=== PATIENT | female | born 1940 | race Caucasian/White ===

== ENCOUNTER → 2017-10-10 13:42 | Outpatient (CLI) | payer MEDICARE, SELFPAY ==
[2017-10-10 14:21] LABS: Alanine Aminotransferase 28 IU/L (9-52); Albumin 4.2 g/dL (3.5-5.0); Albumin Globulin Ratio 1.4 (1.0-2.8); Alkaline Phosphatase 85 U/L (38-126); Aspartate Aminotransferase 21 IU/L (14-36); BUN Creatinine Ratio 15.6 (6-22); Bilirubin Total 0.5 mg/dL (0.2-1.3); Blood Urea Nitrogen 14 mg/dL (7-17); Calcium 9.4 mg/dL (8.4-10.2); Carbon Dioxide 26 mmol/L (22-32); Chloride 105 mmol/L (98-107); Estimated Glomerular Filt Rate > 60.0 mL/min (>60); Glucose 115 mg/dL (80-110); HEMOLYSIS < 15 (0-50); Potassium 4.1 mmol/L (3.4-5.1); Sodium 141 mmol/L (137-145); Total Protein 7.2 g/dL (6.3-8.2)
[2017-10-12 15:35] LABS: Cancer Antigen 27.29 13 U/mL (< 38)
== END ==
PROVIDERS: Internal Medicine Hematology & Oncology; Family Provider Nurse Practitioner Family; PCP Family Medicine; Visit Provider Nurse Practitioner Gerontology
DX: C50.919 Malignant neoplasm of unspecified site of unspecified female breast (principal)
CPT/HCPCS: 36415; 80053; 86300

== ENCOUNTER → 2017-11-25 10:57 | Outpatient (CLI) | payer MEDICARE, SELFPAY ==
--- NOTE | 2017-11-25 | DI.MG.S_ITS ---
BILATERAL DIGITAL SCREENING MAMMOGRAM 3D/2D WITH CAD: 11/25/2017 CLINICAL: Routine screening. Personal history of right breast cancer. Comparison is made to exams dated: 11/23/2016 mammogram, 05/23/2016 mammogram, and 09/02/2015 mammogram - [facility]. There are scattered fibroglandular elements in both breasts. Current study was also evaluated with a Computer Aided Detection (CAD) system. There are benign vascular calcifications in both breasts. There also are post operative findings in the right breast. No significant masses, calcifications, or other findings are seen in either breast. There has been no significant interval change. IMPRESSION: BENIGN There is no mammographic evidence of malignancy. A 1 year screening mammogram is recommended. This exam was interpreted at Station ID: [id number]. NOTE: For mammograms, a report in lay terms will be sent to the patient. Approximately 15% of breast malignancies will not be visualized mammographically. In the management of a palpable breast mass, a negative mammogram must not discourage biopsy of a clinically suspicious lesion. Electronically Signed By: Phillip bonilla/chel:11/25/2017 16:52:07 copy to: Carline Neal copy to: Sergey Jimenez letter sent: Normal Exam ACR BI-RADS Category 2: Benign Finding(s) 3342F
== END ==
PROVIDERS: Family Provider Nurse Practitioner Family; PCP Family Medicine; Referring Provider Nurse Practitioner Gerontology; Visit Provider Family Medicine
DX: Z12.31 Encounter for screening mammogram for malignant neoplasm of breast (principal); Z85.3 Personal history of malignant neoplasm of breast
CPT/HCPCS: 77063; 77067

== ENCOUNTER → 2018-02-10 13:49 | Outpatient (CLI) | payer MEDICARE, SELFPAY ==
[2018-02-10 14:27] LABS: Add Manual Diff / Slide Review NO; Basophils Percent Auto 0.6 % (0-2); Eosinophils Percent Auto 2.4 % (2-4); Hematocrit 40.6 % (36-46); Hemoglobin 13.7 g/dL (12.0-16.0); Lymphocytes Percent Auto 34.3 % (25-40); Mean Corpuscular HGB Conc 33.8 % (30-36); Mean Corpuscular Hemoglobin 32.5 PG (26-34); Mean Corpuscular Volume 96.2 fL (80-100); Monocytes Percent Auto 9.8 % (3-14); Neutrophils Absolute Auto 3200 /uL (3000-5900); Neutrophils Percent Auto 52.9 % (50-75); Platelet Count 286 X10^3/uL (150-400); Red Blood Cell Count 4.22 X10^6/uL (4.0-5.2); Red Cell Distribution Width 13.1 % (11.6-14.8)
[2018-02-10 15:44] LABS: Alanine Aminotransferase 27 IU/L (9-52); Albumin 4.3 g/dL (3.5-5.0); Albumin Globulin Ratio 1.4 (1.0-2.8); Alkaline Phosphatase 88 U/L (38-126); Aspartate Aminotransferase 22 IU/L (14-36); Bilirubin Total 0.3 mg/dL (0.2-1.3); Blood Urea Nitrogen 16 mg/dL (7-17); Calcium 9.2 mg/dL (8.4-10.2); Carbon Dioxide 27 mmol/L (22-32); Chloride 103 mmol/L (98-107); Estimated Glomerular Filt Rate 53.8 mL/min (>60); Globulin 3.1 g/dL (1.7-4.1); Glucose 97 mg/dL (80-110); HEMOLYSIS < 15 (0-50); Sodium 140 mmol/L (137-145); Total Protein 7.4 g/dL (6.3-8.2)
[2018-02-12 15:42] LABS: Cancer Antigen 27.29 15 U/mL (< 38)
--- NOTE | 2018-07-30 12:22 | PC.NURSE ---
Pt stopped by clinic yesterday requesting Letrozole refill. According to pt I don't have a dose for tomorrow. Pt had scheduled appt with Dr. Trotter 08/18/18. RX called in for 30 day supply. Instructed pt to discuss medication schedule and refill with Dr. Trotter at next visit, pt verbalizes understanding and agrees to comply.
== END ==
PROVIDERS: Internal Medicine Hematology & Oncology; Family Provider Nurse Practitioner Family; PCP Family Medicine; Visit Provider Nurse Practitioner Gerontology
DX: C50.911 Malignant neoplasm of unspecified site of right female breast (principal); Z17.0 Estrogen receptor positive status [ER+]; Z79.811 Long term (current) use of aromatase inhibitors
CPT/HCPCS: 36415; 80053; 85025; 86300

== ENCOUNTER 2018-02-17 14:30 | Oncology outpatient (ONC) | payer MEDICARE, SELFPAY ==
--- NOTE | 2017-10-17 17:45 | P.PNONC_ITS ---
Assessment and Plan (1) Breast cancer Current visit: No Status: Acute This is a pleasant 77-year-old lady whom I am seeing for the 1st time today transferring care from Dr. Escalona. She has a history of invasive ductal carcinoma of the right breast in September 2015. S/p lumpectomy and sentinel node examination on October 04, 2015, Surgical pathology showing a 2.1 cm tumor, 2/5 lymph nodes positive, strongly estrogen positive, her-2 negative, T2, N1a Status post adjuvant chemotherapy with 4 cycles of Adriamycin and Cytoxan every 3 weeks, followed by adjuvant radiation therapy. As far as I can review the patient was not exposed to Taxol. Initiation of adjuvant hormonal therapy with Femara since March 2016. Baseline bone density of March 2016, DEXA scan, normal Bilateral screening mammogram of November 2016 negative. She has been tolerating letrozole without major issues however upon questioning she does have some discomfort and stiffness at the base of her thumbs bilaterally which are likely side effects from letrozole. She prefers to continue letrozole for now but I instructed her that if this complaints get worse there would be an option for her to we switched to tamoxifen which does not interfere with joint issues. New 9 her lab studies of October 10, 2017 including CMP and CA 27-29 were all within normal range. Continue letrozole. Next mammogram should be done in November 2017. Next DEXA scan in April 2018. If any osteopenia consider starting her on Prolia injection. Return for follow-up in 4-6 months 10/17/17 17:46 - Time Spent with Patient Approximately 30 min were spent in counseling and coordination of care PN -Subjective Interval history: This is a pleasant 77-year-old lady whom I am seeing for the 1st time today transferring care from Dr. Escalona. She has a history of invasive ductal carcinoma of the right breast in September 2015. S/p lumpectomy and sentinel node examination on October 04, 2015, Surgical pathology showing a 2.1 cm tumor, 2/5 lymph nodes positive, strongly estrogen positive, her-2 negative, T2, N1a Status post adjuvant chemotherapy with 4 cycles of Adriamycin and Cytoxan every 3 weeks, followed by adjuvant radiation therapy. As far as I can review the patient was not exposed to Taxol. Initiation of adjuvant hormonal therapy with Femara since March 2016. Baseline bone density of March 2016, DEXA scan, normal Bilateral screening mammogram of November 2016 negative. She has been tolerating letrozole without major issues however upon questioning she does have some discomfort and stiffness at the base of her thumbs bilaterally which are likely side effects from letrozole. - Additional ROS All systems PM: reviewed and no additional remarkable complaints except as stated Additional ROS: Stiffness and discomfort at the base of the thumb bilaterally no other significant bone pain or joint issues Results - Imaging Additional studies: Procedures Cholecystectomy (05/25/10) Gastropexy (05/25/10) Intraoperative cholangiogram (05/25/10) Other and open repair of diaphragmatic hernia, abdominal approach (05/25/10) Other endoscopy of small intestine (05/05/10) Home Medications and Allergies Home Medications Medication Instructions Recorded Confirmed Type [OMEGA 3] 1,000 mg PO Q DAY #0 04/22/10 History letrozole [Femara] 2.5 mg PO QDAY #90 tab 08/06/17 Rx cholecalciferol (vitamin D3) 1,000 unit PO DAILY 10/17/17 10/17/17 History [Vitamin D3] cyanocobalamin (vitamin B-12) 1,000 mcg PO DAILY 10/17/17 10/17/17 History [Vitamin B-12] latanoprost 10/17/17 History red yeast rice 600 mg PO DAILY 10/17/17 10/17/17 History Allergies Allergy/AdvReac Type Severity Reaction Status Date / Time oxycodone [From PERCOCET] AdvReac Intermediate VOMITING Unverified 07/31/17 12: 25 INGREDIENT: NKDA - NO KNOWN Allergy Unknown Uncoded 07/31/17 12:25 DRUG ALLERGIES
--- NOTE | 2018-02-17 12:28 | P.PNONC_ITS ---
PN -Subjective Interval history: This is a pleasant 77-year-old lady whom presents to oncology clinic 02/17/2018 for routine surveillance visit. She has a history of invasive ductal carcinoma of the right breast diagnosed in September 2015. S/p lumpectomy and sentinel node examination on October 04, 2015, Surgical pathology showing a 2.1 cm tumor, 2/5 lymph nodes positive, strongly estrogen positive, her-2 negative, T2, N1a Status post adjuvant chemotherapy with 4 cycles of Adriamycin and Cytoxan every 3 weeks, followed by adjuvant radiation therapy. As far as I can review the patient was not exposed to Taxol. Initiation of adjuvant hormonal therapy with Femara since March 2016. Baseline bone density of March 2016, DEXA scan, normal Bilateral screening mammogram of November 2016 negative. Most recent screening mammogram, bilateral, was November of 2017, which was without evidence of malignancy and recommendation to repeat in 1 year. She has been tolerating letrozole without any reportable adverse effects. She denies hot flashes. She denies bony pain or muscle pain. No new lumps or bumps. Activity tolerance is unchanged. Appetite is good, weight is stable. No issue with bladder or bowels. Past Medical History 2. Glucose intolerance 3. Cholecystectomy hiatal hernia repair approximately 5 years ago 4. Tubal ligation 5. AB 0 6. She does not have heart or lung disease or other major illnesses. Past Surgical History lumpectomy and node dissection on 10/04/15 Cholecystectomy hiatal hernia repair approximately 5 years ago Tubal ligation Home Medications and Allergies Home Medications Medication Instructions Recorded Confirmed Type [OMEGA 3] 1,000 mg PO Q DAY #0 04/22/10 History letrozole [Femara] 2.5 mg PO QDAY #90 tab 08/06/17 Rx cholecalciferol (vitamin D3) 1,000 unit PO DAILY 10/17/17 10/17/17 History [Vitamin D3] cyanocobalamin (vitamin B-12) 1,000 mcg PO DAILY 10/17/17 10/17/17 History [Vitamin B-12] latanoprost 10/17/17 History red yeast rice 600 mg PO DAILY 10/17/17 10/17/17 History Allergies Allergy/AdvReac Type Severity Reaction Status Date / Time oxycodone [From PERCOCET] AdvReac Intermediate VOMITING Unverified 07/31/17 12: 25 INGREDIENT: NKDA - NO KNOWN Allergy Unknown Uncoded 07/31/17 12:25 DRUG ALLERGIES Exam - Constitutional positive no acute distress - Routine HEENT Exam Eye: Present: conjunctivae pink. Absent: conjunctival icterus, scleral injection ENT: Present: mucous membranes moist, oropharynx clear - Routine Neck Exam Present: supple. Absent: lymphadenopathy - Routine Chest/Breast/Axilla Exam Chest wall exam standard: Absent: tenderness, mass Breast: Absent: tenderness, mass, erythema, rashes Axillae: Absent: lymphadenopathy, mass, tenderness - Routine Respiratory Exam Present: Clear to auscultation bilaterally. Absent: rales, rhonchi, wheezes - Routine Cardiovascular Exam Present: RRR, S1, S2. Absent: murmur, gallop, rubs, JVD - Routine Abdominal Exam Present: soft, normoactive bowel sounds. Absent: tenderness, distended, guarding, organomegaly, mass - Routine Extremities Exam Absent: edema, calf tenderness - Routine Skin Exam Present: intact, normal turgor. Absent: petechiae, rash - Routine Neurological Exam Present: alert, oriented X3 - Routine Psychiatric Exam Present: normal affect Assessment and Plan (1) Breast cancer Current visit: No Status: Acute 77-year-old female with a history of invasive ductal carcinoma in the right breast. Reassuringly on exam today she presents without clinical signs or symptoms of disease progression. She is tolerating letrozole without significant adverse effects. Most recent mammogram November 25, 2017 was without evidence of malignancy. Recommendation is to repeat in 1 year. CBC, CMP unremarkable today. Additionally, CA 27-29 remains low at 15. Return to clinic in 6 months time for provider visit, CBC, CMP, CA 27-29. PCP is following blood sugars. - Time Spent with Patient 30 mins
[2018-02-17 14:56] VITALS: BP 127/84; PULSE 75; RESP 18; TEMP 36.4; O2SAT 98
[2018-08-13 10:00] LABS: Add Manual Diff / Slide Review NO; Basophils Absolute Auto 0 /uL (0-100); Basophils Percent Auto 0.7 % (0-2); Eosinophils Absolute Auto 200 /uL (0-450); Eosinophils Percent Auto 3.7 % (2-4); Hemoglobin 14.2 g/dL (12.0-16.0); Lymphocytes Absolute Auto 1800 /uL (1100-4500); Lymphocytes Percent Auto 30.7 % (25-40); Mean Corpuscular HGB Conc 34.7 % (30-36); Mean Corpuscular Hemoglobin 32.7 PG (26-34); Monocytes Absolute Auto 500 /uL (0-900); Monocytes Percent Auto 8.6 % (3-14); Neutrophils Absolute Auto 3200 /uL (1500-7000); Neutrophils Percent Auto 56.3 % (50-75); Platelet Count 285 X10^3/uL (150-400); Red Blood Cell Count 4.35 X10^6/uL (4.0-5.2); Red Cell Distribution Width 13.2 % (11.6-14.8); White Blood Cell Count 5.8 X10^3/uL (4.5-11.0)
[2018-08-13 10:12] LABS: Alanine Aminotransferase 21 IU/L (9-52); Albumin 4.5 g/dL (3.5-5.0); Albumin Globulin Ratio 1.5 (1.0-2.8); Alkaline Phosphatase 94 U/L (38-126); Aspartate Aminotransferase 23 IU/L (14-36); BUN Creatinine Ratio 14.5 (6-22); Bilirubin Total 0.5 mg/dL (0.2-1.3); Blood Urea Nitrogen 16 mg/dL (7-17); Calcium 9.6 mg/dL (8.4-10.2); Carbon Dioxide 25 mmol/L (22-32); Chloride 103 mmol/L (98-107); Globulin 3.1 g/dL (1.7-4.1); Glucose 162 mg/dL (80-110); HEMOLYSIS < 15 (0-50); Potassium 3.9 mmol/L (3.4-5.1); Sodium 139 mmol/L (137-145); Total Protein 7.6 g/dL (6.3-8.2)
[2018-08-15 15:44] LABS: Cancer Antigen 27.29 14 U/mL (< 38)
== END 2018-02-27 13:35 ==
PROVIDERS: Family Provider Nurse Practitioner Family; PCP Family Medicine; Visit Provider Internal Medicine Hematology & Oncology
DX: C50.911 Malignant neoplasm of unspecified site of right female breast (principal); Z17.0 Estrogen receptor positive status [ER+]; Z79.811 Long term (current) use of aromatase inhibitors
CPT/HCPCS: 36415; 80053; 85025; 86300; 99214

== ENCOUNTER → 2018-11-27 12:39 | Outpatient (CLI) | payer MEDICARE, SELFPAY ==
--- NOTE | 2018-11-27 12:41 | DI.MG.S_ITS ---
BILATERAL DIGITAL DIAGNOSTIC MAMMOGRAM 3D/2D POST LUMPECTOMY: 11/27/2018 CLINICAL: Malignant neoplasm of breast. History of right breast cancer status post right lumpectomy. Comparison is made to exams dated: 11/25/2017 mammogram, 11/23/2016 mammogram, 08/18/2015 mammogram, 09/02/2015 ultrasound biopsy, and 04/21/2013 mammogram - [facility]. There are scattered fibroglandular elements in both breasts. There are postsurgical changes of the superior right breast with surgical clips noted. There is an overlying linear scar marker at the surgical site. There are multiple circular mole markers overlying the left breast. No suspicious masses, calcifications, or other findings are seen in either breast. IMPRESSION: There is no mammographic evidence of malignancy in either breast. A 1 year screening mammogram is recommended. The patient is advised to monitor her breasts and to return sooner for reevaluation if she feels anything grow or change in her breasts. Clinical follow-up is also recommended for this patient with history of right breast cancer. This exam was interpreted at Station ID: [id number]. NOTE: For mammograms, a report in lay terms will be sent to the patient. Approximately 15% of breast malignancies will not be visualized mammographically. In the management of a palpable breast mass, a negative mammogram must not discourage biopsy of a clinically suspicious lesion. Electronically Signed By: Phillip Ann M.D. ecl/:11/27/2018 13:36:35 copy to: Carline Neal letter sent: Clinical Evaluation ACR BI-RADS Category 2: Benign Finding(s) 3342F
== END ==
PROVIDERS: PCP Family Medicine; Referring Provider Nurse Practitioner Family
DX: C50.919 Malignant neoplasm of unspecified site of unspecified female breast (principal); R92.8 Other abnormal and inconclusive findings on diagnostic imaging of breast; Z85.3 Personal history of malignant neoplasm of breast
CPT/HCPCS: 77066; G0279

== ENCOUNTER → 2019-07-06 18:16 | Outpatient (CLI) | payer MEDICARE, SELFPAY ==
[2019-07-06 19:07] LABS: Influenza A - CEPHEID Flu A NEGATIVE (NEGATIVE); Influenza B - CEPHEID Flu B NEGATIVE (NEGATIVE)
[2019-07-14 01:36] LABS: COVID19 Sendout Not Detected (Not Detected)
== END ==
PROVIDERS: PCP Family Medicine; Visit Provider Physician Assistant
DX: R68.89 Other general symptoms and signs (principal)
CPT/HCPCS: 87502; 87635

== ENCOUNTER 2019-07-19 21:58 | Emergency (ER) | payer MEDICARE, SELFPAY ==
[2019-07-19 22:12] VITALS: BP 138/96; PULSE 97; RESP 18; TEMP 36.1; O2SAT 97; BMI 30.9
[2019-07-19 23:35] LABS: Bacteria Urine Few (2-10); RBC Urine >100/HPF (0-5/HPF); WBC Urine 5-10/HPF (0-5/HPF)
[2019-07-19 23:36] LABS: Calcium Oxalate Crystals Urine Few; Culture Indicated Urine Specimen Cultured
--- NOTE | 2019-07-19 23:41 | ED.FEMALEGU ---
HPI - Female Genitourinary General Chief complaint: Urogenital-Female Stated complaint: thinks bladder infection, little bit of a cough Time Seen by Provider: 07/19/19 22:20 Source: patient Mode of arrival: Ambulatory Limitations: no limitations History of Present Illness HPI Narrative: 79-year-old female nonsmoker with noncontributory medical history presents by herself with a chief complaint of burning, frequency and urgency with urination over the course of the day. She denies any fever or chills nor back pain. She does admit to blood in her urine. She denies chest pain or shortness of breath. She denies nausea, vomiting or diarrhea. She denies any back pain. Patient does state that she was recently seen and evaluated as an outpatient and was found to have a bronchitis and was placed on antibiotics. Since then she admits to engaging in sexual contact with a partner and using a battery powered toy. She denies vaginal bleeding or discharge. MD Complaint: dysuria and UTI Onset (ago): day(s) Female Urogenital Radiation: Suprapubic Severity: mild Quality: Burning Duration: constant Exacerbating factors: urination Urinary symptoms: Dysuria, Frequency, Hematuria and Urgency Related Data Home Medications Medication Instructions Recorded Confirmed [OMEGA 3] 1,000 mg PO Q DAY #0 04/22/10 07/06/19 cholecalciferol (vitamin D3) 1,000 unit PO DAILY 10/17/17 07/06/19 [Vitamin D3] cyanocobalamin (vitamin B-12) 1,000 mcg PO DAILY 10/17/17 07/06/19 [Vitamin B-12] latanoprost 10/17/17 07/06/19 red yeast rice 600 mg PO DAILY 10/17/17 07/06/19 Previous Rx's Medication Instructions Recorded letrozole [Femara] 2.5 mg PO QDAY #90 tab 08/20/18 albuterol sulfate 90 mcg/actuation 2 puff INHALATION Q4-6H PRN #8.5 07/06/19 aerosol inhaler gram benzonatate 100 mg capsule 100 mg PO BID PRN #30 cap 07/06/19 fluconazole [Diflucan] 150 mg PO Q3D #2 tab 07/20/19 Allergies Allergy/AdvReac Type Severity Reaction Status Date / Time oxycodone [From PERCOCET] AdvReac Intermediate VOMITING Unverified 07/06/19 18:34 INGREDIENT: NKDA - NO KNOWN Allergy Unknown Uncoded 07/31/17 12:25 DRUG ALLERGIES Review of Systems Constitutional Constitutional: Denies chills, Denies fatigue, Denies fever(s), Denies frequent falls, Denies lethargy and Denies weakness Eyes Eyes: Denies change in vision, Denies eye discharge, Denies irritation and Denies loss of vision ENT Ears, Nose, Mouth, and Throat: Denies change in voice, Denies dizziness, Denies neck pain, Denies sore throat and Denies throat swelling Cardiovascular Cardiovascular: Denies chest pain, Denies irregular heart rhythm, Denies lightheadedness, Denies palpitations, Denies dyspnea, Denies dyspnea on exertion and Denies orthopnea Respiratory Respiratory: Denies cough, Denies dyspnea, Denies dyspnea on exertion and Denies wheezing Gastrointestinal Gastrointestinal: Denies abdominal pain, Denies change in bowel habits, Denies diarrhea, Denies nausea and Denies vomiting Genitourinary Genitourinary: Reports hematuria, Denies flank pain, Denies urinary incontinence and Denies urinary urgency Musculoskeletal Musculoskeletal: Denies back pain, Denies muscle weakness, Denies neck pain, Denies numbness and Denies tingling Integumentary/Breasts Skin/Breast: Denies pruritus, Denies erythema, Denies rash and Denies wounds Neurologic Neurologic: Denies behavioral changes, Denies confusion, Denies dizziness, Denies frequent falls, Denies loss of vision, Denies numbness, Denies tingling and Denies weakness Psychiatric Psychiatric: Denies anxiety, Denies behavioral changes, Denies confusion, Denies depression, Denies homicidal ideation and Denies suicidal ideation Endocrine Endocrine: Denies fatigue, Denies flushing and Denies palpitations Hematologic/Lymphatic Hematologic/Lymphatic: Denies easy bruising Allergic/Immunologic Allergic/Immunologic: Denies urticaria, Denies throat swelling and Denies wheezing Patient History Medical History Pneumonia (Acute) alcohol intake frequency: 0-2 drinks per day Substance Use Type: does not use Exam Narrative Exam Narrative: GENERAL: [79] year old patient appears stated age. Well-nourished, well-developed patient, in mild distress. HEAD: Atraumatic. Normocephalic. EYES: Pupils equal round and reactive. Extraocular motions intact. No scleral icterus. No injection or drainage. ENT: Nose without bleeding, purulent drainage. Throat without erythema, tonsillar hypertrophy or exudate. Airway patent. NECK: Trachea midline. Non tender CARDIOVASCULAR: Regular rate and rhythm without murmurs, gallops, or rubs. RESPIRATORY: Clear to auscultation. Breath sounds equal bilaterally. No wheezes, rales, or rhonchi. GASTROINTESTINAL: Abdomen soft, non-tender, nondistended. PELVIC: cystocele, erythematous vulva, minimal external white discharge consistent with possible becky EXTREMITIES: No edema or joint tenderness. BACK: Nontender without deformity or crepitance. No flank tenderness. NEURO: AOx3. SKIN: No rash or erythema of visible areas Initial Vital Signs Initial Vital Signs: Vital Signs Temperature 97.0 F L 07/19/19 22:12 Pulse Rate 97 H 07/19/19 22:12 Respiratory Rate 18 07/19/19 22:12 Blood Pressure 138/96 H 07/19/19 22:12 Pulse Oximetry 97 07/19/19 22:12 Course Orders Ordered: ED Orders 07/19/19 23:14 Urine Culture Stat Urine Microscopic Stat Discontinued Medications Fluconazole (Diflucan) 150 mg PO NOW ONE Stop: 07/20/19 00:40 Last Admin: 07/20/19 01:16 Dose: Not Given Documented by: ERICA Phenazopyridine HCl (Pyridium 100mg Prepack) 1 bottle MISC SEEINSTR ONE Stop: 07/20/19 01:00 Last Admin: 07/20/19 01:16 Dose: 1 bottle Documented by: ERICA Vital Signs Vital signs: Vital Signs - 8 hr 07/20/19 01:24 Temperature 98.6 F Pulse Rate 107 H Respiratory Rate 20 Blood Pressure 152/88 H Pulse Oximetry 97 MDM - Female Genitourinary Lab Data Labs: Lab Results 07/19/19 Range/Units 23:14 Urine RBC >100/hpf H (0-5/HPF) Urine WBC 5-10/hpf H (0-5/HPF) Calcium Oxalate Crystal Few H Urine Bacteria Few (2-10) H (None) Ur Culture Indicated? Specimen cultured Micro UA Comment * Urine Dip Bedside Urine Glucose 100 mg/dl Bedside Urine Bilirubin ++ 2 Bedside Urine Ketone ++ 40 Urine Specific [place] 1.020 Bedside Urine Protein +++ 300 Bedside Urine Urobilinogen 2+ 4mg Bedside Urine Nitrite + Positive Bedside Urine Leukocytes +++ 500 Esterase Discharge Plan Departure Patient Disposition: Home Clinical Impression: Dysuria, Candidiasis of vulva Hematuria Qualifiers: Hematuria type: unspecified type Qualified Code(s): R31.9 - Hematuria, unspecified Bladder cystocele Qualifiers: Cystocele location: midline Qualified Code(s): N81.11 - Cystocele, midline Discharge Date/Time: 07/20/19 01:26 Instructions: Vaginal Yeast Infection Activity Restrictions/Additional Instructions: *You have been diagnosed with [ vulva candidiasis, cystocele ] *What to do: *Take medications as directed *Follow up with your primary care provider in 2-3 days, call for an appointment. Let them know you were seen in the Emergency Department and that we ask that you be seen in follow up *Return to ER if you should have any new, worsening or concerning symptoms Prescriptions: New fluconazole [Diflucan] 150 mg tablet 150 mg PO Q3D Qty: 2 RF: 0 No Action benzonatate [Tessalon Perles] 100 mg capsule 100 mg PO BID PRN (Reason: cough) Qty: 30 RF: 0 albuterol sulfate 90 mcg/actuation HFA aerosol inhaler 2 puff INHALATION Q4-6H PRN (Reason: bronchospasm) Qty: 8.5 RF: 0 [OMEGA 3] 1,000 mg PO Q DAY Qty: 0 RF: 0 cholecalciferol (vitamin D3) [Vitamin D3] 1,000 unit Tablet 1,000 unit PO DAILY RF: 0 latanoprost 0.005 % Drops RF: 0 cyanocobalamin (vitamin B-12) [Vitamin B-12] 1,000 mcg Tablet 1,000 mcg PO DAILY RF: 0 red yeast rice 600 mg Capsule 600 mg PO DAILY RF: 0 letrozole [Femara] 2.5 MG tablet 2.5 mg PO QDAY Qty: 90 RF: 3 Referrals: Carolina Boss MD [Physician] - Vernon Moss MD [Primary Care Provider] -
[2019-07-20] MEDS: PHENAZOPYRIDINE 100 MG PREPACK 1 BOTTLE MISC (01:16)
[2019-07-20 01:24] VITALS: BP 152/88; PULSE 107; RESP 20; TEMP 37; O2SAT 97
== END 2019-07-20 01:26 | disposition home or self-care (01) ==
PROVIDERS: Emergency Provider Emergency Medicine; PCP Family Medicine
DX: B37.3 Candidiasis of vulva and vagina (principal); R31.9 Hematuria, unspecified; N81.11 Cystocele, midline; R30.0 Dysuria
CPT/HCPCS: 81003; 81015; 87077; 87086; 87186; 99281; 99283

== ENCOUNTER → 2019-08-28 09:26 | Outpatient (CLI) | payer MEDICARE, SELFPAY ==
[2019-08-28 10:04] LABS: Appearance Urine UA CLOUDY; Bilirubin Urine UA NEGATIVE (NEGATIVE); Color Urine UA YELLOW; Glucose Urine UA NEGATIVE (Negative); Ketones Urine UA NEGATIVE (NEGATIVE); Leukocyte Esterase Urine UA 3+ (NEGATIVE); Nitrite Urine UA NEGATIVE (Negative); Occult Blood Urine UA 1+ (Negative); Protein Urine UA NEGATIVE (Negative); Urobilinogen Urine UA 0.2 E.U./dL (0.2)
[2019-08-28 10:28] LABS: Bacteria Urine Moderate (10-30); RBC Urine 1-5/HPF (0-5/HPF); WBC Urine 30-100/HPF (0-5/HPF)
[2019-08-28 10:29] LABS: Culture Indicated Urine Specimen Cultured
== END ==
PROVIDERS: PCP Internal Medicine; Referring Provider Internal Medicine; Visit Provider Internal Medicine
DX: R30.0 Dysuria (principal)
CPT/HCPCS: 81001; 87077; 87086; 87186

== ENCOUNTER → 2019-10-09 13:08 | Outpatient (CLI) | payer MEDICARE, SELFPAY ==
[2019-10-09 14:00] LABS: Add Manual Diff / Slide Review NO; Basophils Absolute Auto 100 /uL (0-100); Basophils Percent Auto 0.8 % (0-2); Eosinophils Absolute Auto 200 /uL (0-450); Eosinophils Percent Auto 2.6 % (2-4); Hematocrit 40.4 % (36-46); Lymphocytes Absolute Auto 2500 /uL (1100-4500); Lymphocytes Percent Auto 34.2 % (25-40); Mean Corpuscular HGB Conc 34.7 % (30-36); Mean Corpuscular Hemoglobin 33.1 PG (26-34); Mean Corpuscular Volume 95.3 fL (80-100); Monocytes Absolute Auto 800 /uL (0-900); Monocytes Percent Auto 10.7 % (3-14); Neutrophils Absolute Auto 3700 /uL (1500-7000); Neutrophils Percent Auto 51.7 % (50-75); Platelet Count 310 X10^3/uL (150-400); Red Blood Cell Count 4.24 X10^6/uL (4.0-5.2); Red Cell Distribution Width 13.6 % (11.6-14.8); White Blood Cell Count 7.2 X10^3/uL (4.5-11.0)
[2019-10-09 14:25] LABS: Alanine Aminotransferase 25 IU/L (<35); Albumin 4.5 g/dL (3.5-5.0); Albumin Globulin Ratio 1.4 (1.0-2.8); Alkaline Phosphatase 84 U/L (38-126); Aspartate Aminotransferase 27 IU/L (14-36); BUN Creatinine Ratio 15.2 (6-22); Bilirubin Total 0.6 mg/dL (0.2-1.3); Blood Urea Nitrogen 15 mg/dL (7-17); Calcium 9.7 mg/dL (8.4-10.2); Carbon Dioxide 25 mmol/L (22-32); Chloride 104 mmol/L (98-107); Estimated Glomerular Filt Rate 54.1 mL/min (>60); Globulin 3.3 g/dL (1.7-4.1); Glucose 113 mg/dL (80-110); HEMOLYSIS 34 (0-50); Potassium 4.3 mmol/L (3.4-5.1); Sodium 139 mmol/L (137-145); Total Protein 7.8 g/dL (6.3-8.2)
== END ==
PROVIDERS: PCP Internal Medicine; Referring Provider Internal Medicine Hematology & Oncology; Visit Provider Internal Medicine Hematology & Oncology
DX: C50.919 Malignant neoplasm of unspecified site of unspecified female breast (principal); Z78.0 Asymptomatic menopausal state; E11.9 Type 2 diabetes mellitus without complications; Z79.811 Long term (current) use of aromatase inhibitors
CPT/HCPCS: 36415; 77080; 80053; 85025

== ENCOUNTER → 2019-12-24 09:53 | Outpatient (CLI) | payer MEDICARE, SELFPAY ==
--- NOTE | 2019-12-24 10:17 | DI.MG.S_ITS ---
Patient Name: WILLEM SERRANO date: 1940 Sex: F Attending Physician: Preston Indications: Date: 12/24/2019 10:12 At the request of: PREETHI PADILLA Procedure: MM screening mammo BI BILATERAL DIGITAL SCREENING MAMMOGRAM 3D/2D WITH CAD POST LUMPECTOMY: 12/24/2019 CLINICAL: Routine screening. Personal history of right breast cancer. Comparison is made to exams dated: 11/27/2018 mammogram, 11/25/2017 mammogram, and 11/23/2016 mammogram - [facility]. There are scattered fibroglandular elements in both breasts. Current study was also evaluated with a Computer Aided Detection (CAD) system. There are benign calcifications in both breasts. There also are benign post operative findings in the right breast. No significant masses, calcifications, or other findings are seen in either breast. There has been no significant interval change. IMPRESSION: BENIGN There is no mammographic evidence of malignancy. A 1 year screening mammogram is recommended. This exam was interpreted at Station ID: [id number]. NOTE: For mammograms, a report in lay terms will be sent to the patient. Approximately 15% of breast malignancies will not be visualized mammographically. In the management of a palpable breast mass, a negative mammogram must not discourage biopsy of a clinically suspicious lesion. Electronically Signed By: Rashad shearer/chel:12/24/2019 10:47:39 copy to: Carline Neal letter sent: Normal Exam Continued Report - Page 2 of 2 Patient Name: WILLEM SERRANO date: 1940 Sex: F Attending Physician: Preston Indications: Date: 12/24/2019 10:12 At the request of: PREETHI PADILLA Procedure: MM screening mammo BI ACR BI-RADS Category 2: Benign Finding(s) 3342F
== END ==
PROVIDERS: PCP Internal Medicine; Referring Provider Internal Medicine; Visit Provider Internal Medicine
DX: Z12.31 Encounter for screening mammogram for malignant neoplasm of breast (principal); Z85.3 Personal history of malignant neoplasm of breast
CPT/HCPCS: 77063; 77067

== ENCOUNTER → 2020-05-20 14:43 | Outpatient (CLI) | payer MEDICARE, SELFPAY ==
[2020-05-20] MEDS: COVID-19 VACC #1, MRNA(MOD) 100 MCG/0.5 ML VIAL IM (15:12)
== END ==
PROVIDERS: PCP Internal Medicine; Visit Provider Internal Medicine
DX: Z23 Encounter for immunization (principal)
CPT/HCPCS: 0011A; 91301

== ENCOUNTER → 2020-06-17 08:30 | Outpatient (CLI) | payer MEDICARE, SELFPAY ==
[2020-06-17] MEDS: COVID-19 VACC #2, MRNA(MOD) 100 MCG/0.5 ML VIAL IM (08:34)
== END ==
PROVIDERS: PCP Internal Medicine; Visit Provider Internal Medicine
DX: Z23 Encounter for immunization (principal)
CPT/HCPCS: 0012A; 91301

== ENCOUNTER → 2021-01-10 15:01 | Outpatient (CLI) | payer MEDICARE, SELFPAY ==
--- NOTE | 2021-01-10 15:04 | DI.MG.S_ITS ---
BILATERAL DIGITAL SCREENING MAMMOGRAM 3D/2D WITH CAD: 01/10/2021 CLINICAL: Routine screening. Personal history of right breast cancer. Comparison is made to exams dated: 12/24/2019 mammogram, 11/27/2018 mammogram, and 11/25/2017 mammogram - [facility]. There are scattered fibroglandular elements in both breasts. Current study was also evaluated with a Computer Aided Detection (CAD) system. There are benign calcifications in both breasts. There also are benign post operative findings in the right breast. No significant masses, calcifications, or other findings are seen in either breast. There has been no significant interval change. IMPRESSION: BENIGN There is no mammographic evidence of malignancy. A 1 year screening mammogram is recommended. This exam was interpreted at Station ID: [id number]. NOTE: For mammograms, a report in lay terms will be sent to the patient. Approximately 15% of breast malignancies will not be visualized mammographically. In the management of a palpable breast mass, a negative mammogram must not discourage biopsy of a clinically suspicious lesion. Electronically Signed By: Leonard Joshi M.D., jr/chel:01/10/2021 15:40:48 copy to: Carline Neal letter sent: Normal Exam ACR BI-RADS Category 2: Benign Finding(s) 3342F
== END ==
PROVIDERS: PCP Internal Medicine; Referring Provider Internal Medicine Medical Oncology; Visit Provider Internal Medicine Medical Oncology
DX: Z12.31 Encounter for screening mammogram for malignant neoplasm of breast (principal); Z85.3 Personal history of malignant neoplasm of breast
CPT/HCPCS: 77063; 77067

== ENCOUNTER 2021-04-22 10:26 | Emergency (ER) | payer MEDICARE, SELFPAY ==
[2021-04-22 10:31] VITALS: BP 138/80; PULSE 108; RESP 22; TEMP 36.8; O2SAT 99; BMI 32.9
[2021-04-22 11:10] LABS: Appearance Urine UA CLOUDY; Bilirubin Urine UA NEGATIVE (NEGATIVE); Color Urine UA YELLOW; Glucose Urine UA 1+ g/dL (Negative); Ketones Urine UA NEGATIVE (NEGATIVE); Leukocyte Esterase Urine UA 1+ (NEGATIVE); Nitrite Urine UA NEGATIVE (Negative); Occult Blood Urine UA 3+ (Negative); Protein Urine UA 2+ (Negative); Specific Gravity Urine UA >=1.030 (1.000-1.035); Urobilinogen Urine UA 0.2 E.U./dL (0.2)
[2021-04-22 11:20] LABS: Add Manual Diff / Slide Review NO; Basophils Absolute Auto 100 /uL (0-100); Basophils Percent Auto 0.9 % (0-2); Eosinophils Absolute Auto 200 /uL (0-450); Eosinophils Percent Auto 2.5 % (2-4); Hematocrit 41.4 % (36-46); Lymphocytes Absolute Auto 2000 /uL (1100-4500); Lymphocytes Percent Auto 24.5 % (25-40); Mean Corpuscular HGB Conc 33.8 % (30-36); Mean Corpuscular Volume 94.6 fL (80-100); Monocytes Absolute Auto 800 /uL (0-900); Monocytes Percent Auto 9.4 % (3-14); Neutrophils Absolute Auto 5200 /uL (1500-7000); Neutrophils Percent Auto 62.7 % (50-75); Platelet Count 336 X10^3/uL (150-400); Red Blood Cell Count 4.37 X10^6/uL (4.0-5.2); Red Cell Distribution Width 13.4 % (11.6-14.8); White Blood Cell Count 8.3 X10^3/uL (4.5-11.0)
[2021-04-22 11:35] LABS: Lactate (Lactic Acid) 2.2 mmol/L (0.7-2.1)
[2021-04-22 11:36] LABS: Alanine Aminotransferase 27 IU/L (<35); Albumin 4.5 g/dL (3.5-5.0); Albumin Globulin Ratio 1.4 (1.0-2.8); Alkaline Phosphatase 92 U/L (38-126); Aspartate Aminotransferase 26 IU/L (14-36); BUN Creatinine Ratio 13.8 (6-22); Bilirubin Total 0.5 mg/dL (0.2-1.3); Blood Urea Nitrogen 15 mg/dL (7-17); Calcium 9.6 mg/dL (8.4-10.2); Carbon Dioxide 26 mmol/L (22-32); Chloride 103 mmol/L (98-107); Estimated Glomerular Filt Rate 48.3 mL/min (>60); Globulin 3.3 g/dL (1.7-4.1); Glucose 160 mg/dL (80-110); HEMOLYSIS < 15 (0-50); Sodium 138 mmol/L (137-145); Total Protein 7.8 g/dL (6.3-8.2)
[2021-04-22 11:46] LABS: Bacteria Urine None Seen; Calcium Oxalate Crystals Urine Few; Culture Indicated Urine Specimen Cultured; RBC Urine 5-10/HPF (0-5/HPF); Renal Epithelial Cells Urine 1-5/HPF (0-1/HPF); WBC Urine 5-10/HPF (0-5/HPF)
[2021-04-22] MEDS: cefTRIAXone 1,000 MG in SODIUM CHLORIDE 0.9% 100 ML 200 ML IV (11:55)
[2021-04-22] MEDS: SODIUM CHLORIDE 0.9% 1,000 ML 1000 ML IV (11:56)
[2021-04-22 12:16] LABS: COVID19 - ADMIT (NP swab/PCR) Negative (Negative)
[2021-04-22 12:17] VITALS: PULSE 85; O2SAT 94
[2021-04-22 12:30] VITALS: BP 120/64; PULSE 83; RESP 20; O2SAT 97
--- NOTE | 2021-04-22 12:58 | ED_ITS ---
HPI - General Adult General Chief complaint: Urogenital-Female Stated complaint: Thinks bladder infection Time Seen by Provider: 04/22/21 10:38 Source: patient Mode of arrival: Ambulatory History of Present Illness HPI narrative: 80-year-old woman with a history of the diabetes mild renal impairment and breast cancer initially diagnosed in September of 2015 presents complaining of dysuria. She noted symptoms approximately 48 hours ago that went away. This morning they returned and she was worried she was developing a bladder infection. Previous episode of similar symptoms she did in fact have an E coli bladder infection that was pansensitive. She does not describe fevers, cough, abdominal pain, flank pain, chest pain, palpitations, dyspnea, lower extremity edema. She is not describing any headaches and there has been no vaginal discharge, diarrhea or constipation. Related Data Home Medications Medication Instructions Recorded Confirmed [OMEGA 3] 1,000 mg PO Q DAY #0 04/22/10 10/05/20 cholecalciferol (vitamin D3) 25 1,000 unit PO DAILY 10/17/17 10/05/20 mcg (1,000 unit) tablet (Vitamin D3) cyanocobalamin (vitamin B-12) 1,000 mcg PO DAILY 10/17/17 10/05/20 1,000 mcg tablet (Vitamin B-12) latanoprost 0.005 % eye drops 1 drp DAILY 10/17/17 10/05/20 red yeast rice 600 mg capsule 600 mg PO DAILY 10/17/17 10/05/20 Previous Rx's Medication Instructions Recorded albuterol sulfate 90 mcg/actuation 2 puff INHALATION Q4-6H PRN #8.5 07/06/19 aerosol inhaler gram Allergies Allergy/AdvReac Type Severity Reaction Status Date / Time oxycodone AdvReac Intermediate VOMITING Verified 04/22/21 10:34 Review of Systems Review of Systems Narrative: Remainder of complete review of systems is otherwise unremarkable except for that included in the HPI. 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 Able to give a complete and coherent history. Well-nourished well-developed HEENT: Moist mucous membranes, normal sclera with reactive pupils, Neck: No JVD, supple Respiratory: Lungs are clear to auscultation, no wheezing no rales no rhonchi. Full and symmetrical air movement Cardiac: Regular rate and rhythm no murmurs no bruits Abdomen: Soft, nontender, good bowel tones, no flank pain Skin: Warm and dry, no rashes Neurologic: Grossly neurologically intact with no obvious asymmetries or abnormalities Extremities: No trauma, well perfused Psych: Cooperative, appropriate insight and affect Initial Vital Signs Initial Vital Signs: Vital Signs Temperature 98.2 F 04/22/21 10:31 Pulse Rate 108 H 04/22/21 10:31 Respiratory Rate 22 04/22/21 10:31 Blood Pressure 138/80 04/22/21 10:31 Pulse Oximetry 99 04/22/21 10:31 Course Orders Ordered: ED Orders 04/22/21 10:41 Urinalysis and Microscopic Stat Urine Culture Stat 04/22/21 11:00 COVID19 - ADMIT (PRIMARY CARE PEDIATRICIAN swab/PCR) Stat Complete Blood Count AUTO DIFF Stat Comprehensive Metabolic Panel Stat Lactate (Lactic Acid) Stat 04/22/21 12:25 Blood Culture Stat Discontinued Medications Ceftriaxone Sodium 1,000 mg/ (Sodium Chloride) 100 mls @ 200 mls/hr IV NOW ONE Stop: 04/22/21 11:43 Last Infusion: 04/22/21 12:28 Dose: 200 mls/hr Documented by: Admin: 04/22/21 11:55 Dose: 200 mls/hr Documented by: NGOZI Sodium Chloride (Normal Saline 0.9%) 1,000 mls @ 1,000 mls/hr IV BOLUS ONE Stop: 04/22/21 12:45 Last Infusion: 04/22/21 13:01 Dose: 1,000 mls/hr Documented by: Admin: 04/22/21 11:56 Dose: 1,000 mls/hr Documented by: NGOZI Vital Signs Vital signs: Vital Signs - 8 hr 04/22/21 10:31 04/22/21 12:17 04/22/21 12:30 Temperature 98.2 F Pulse Rate 108 H 85 83 Respiratory Rate 22 20 Blood Pressure 138/80 120/64 Pulse Oximetry 99 94 97 Medical Decision Making Lab Data Result diagrams: 04/22/21 11:00 04/22/21 11:00 Labs: Lab Results 04/22/21 04/22/21 04/22/21 Range/Units 10:41 11:00 11:00 WBC 8.3 (4.5-11.0) X10^3/uL RBC 4.37 (4.0-5.2) X10^6/uL Hgb 14.0 (12.0-16.0) g/dL Hct 41.4 (36-46) % MCV 94.6 (80-100) fL MCH 32.0 (26-34) PG MCHC 33.8 (30-36) % RDW 13.4 (11.6-14.8) % Plt Count 336 (150-400) X10^3/uL Neut % (Auto) 62.7 (50-75) % Lymph % (Auto) 24.5 L (25-40) % [place] % (Auto) 9.4 (3-14) % Eos % (Auto) 2.5 (2-4) % Baso % (Auto) 0.9 (0-2) % Neut # (Auto) 5200 (1274-5520) /uL Lymph # (Auto) 2000 (1240-3301) /uL [place] # (Auto) 800 (0-900) /uL Eos # (Auto) 200 (0-450) /uL Baso # (Auto) 100 (0-100) /uL Sodium 138 (137-145) mmol/L Potassium 4.0 (3.4-5.1) mmol/L Chloride 103 (98-107) mmol/L Carbon Dioxide 26 (22-32) mmol/L BUN 15 (7-17) mg/dL Creatinine 1.09 H (0.52-1.04) mg/dL Estimated GFR 48.3 L (>60) mL/min BUN/Creatinine Ratio 13.8 (6-22) Glucose 160 H (80-110) mg/dL Lactate (0.7-2.1) mmol/L Calcium 9.6 (8.4-10.2) mg/dL Total Bilirubin 0.5 (0.2-1.3) mg/dL AST 26 (14-36) IU/L ALT 27 (<35) IU/L Alkaline Phosphatase 92 (38-126) U/L Total Protein 7.8 (6.3-8.2) g/dL Albumin 4.5 (3.5-5.0) g/dL Globulin 3.3 (1.7-4.1) g/dL Albumin/Globulin Ratio 1.4 (1.0-2.8) Urine Color Yellow Urine Appearance Cloudy Urine pH 5.0 (4.5-8.0) Ur Specific [place] >=1.030 H (1.000-1.035) Urine Protein 2+ H (Negative) Urine Glucose (UA) 1+ H (Negative) g/dL Urine Ketones Negative (NEGATIVE) Urine Occult Blood 3+ H (Negative) Urine Nitrate Negative (Negative) Urine Bilirubin Negative (NEGATIVE) Urine Urobilinogen 0.2 (0.2) E.U./dL Ur Leukocyte Esterase 1+ H (NEGATIVE) Urine RBC 5-10/hpf H (0-5/HPF) Urine WBC 5-10/hpf H (0-5/HPF) Ur Renal Epithelial Cell 1-5/hpf H (0-1/HPF) Calcium Oxalate Crystal Few H Urine Bacteria None seen (None) Ur Culture Indicated? Specimen cultured SARS-CoV-2 (PCR) (Negative) 04/22/21 04/22/21 04/22/21 Range/Units 11:00 11:00 13:58 WBC (4.5-11.0) X10^3/uL RBC (4.0-5.2) X10^6/uL Hgb (12.0-16.0) g/dL Hct (36-46) % MCV (80-100) fL MCH (26-34) PG MCHC (30-36) % RDW (11.6-14.8) % Plt Count (150-400) X10^3/uL Neut % (Auto) (50-75) % Lymph % (Auto) (25-40) % [place] % (Auto) (3-14) % Eos % (Auto) (2-4) % Baso % (Auto) (0-2) % Neut # (Auto) (1733-3042) /uL Lymph # (Auto) (6661-8892) /uL [place] # (Auto) (0-900) /uL Eos # (Auto) (0-450) /uL Baso # (Auto) (0-100) /uL Sodium (137-145) mmol/L Potassium (3.4-5.1) mmol/L Chloride (98-107) mmol/L Carbon Dioxide (22-32) mmol/L BUN (7-17) mg/dL Creatinine (0.52-1.04) mg/dL Estimated GFR (>60) mL/min BUN/Creatinine Ratio (6-22) Glucose (80-110) mg/dL Lactate 2.2 H 1.8 (0.7-2.1) mmol/L Calcium (8.4-10.2) mg/dL Total Bilirubin (0.2-1.3) mg/dL AST (14-36) IU/L ALT (<35) IU/L Alkaline Phosphatase (38-126) U/L Total Protein (6.3-8.2) g/dL Albumin (3.5-5.0) g/dL Globulin (1.7-4.1) g/dL Albumin/Globulin Ratio (1.0-2.8) Urine Color Urine Appearance Urine pH (4.5-8.0) Ur Specific [place] (1.000-1.035) Urine Protein (Negative) Urine Glucose (UA) (Negative) g/dL Urine Ketones (NEGATIVE) Urine Occult Blood (Negative) Urine Nitrate (Negative) Urine Bilirubin (NEGATIVE) Urine Urobilinogen (0.2) E.U./dL Ur Leukocyte Esterase (NEGATIVE) Urine RBC (0-5/HPF) Urine WBC (0-5/HPF) Ur Renal Epithelial Cell (0-1/HPF) Calcium Oxalate Crystal Urine Bacteria (None) Ur Culture Indicated? SARS-CoV-2 (PCR) Negative (Negative) MDM Narrative Medical decision making narrative: 8-year-old woman with 48 hours of intermittent dysuria and concerns for urinary tract infection. She does have a history of breast cancer and diabetes and is tachycardic on arrival. Complete workup does not suggest sepsis. Lactic acid w as slightly elevated at 2.2 and I believe she was mildly dehydrated. Her heart rate has come down nicely with a single L of normal saline. She was given IV ceftriaxone and her urine will be cultured. Given the single dose of IV antibiotic and minimal symptoms for a brief amount of time I believe that will be adequate coverage for her bladder infection at this time. We will contact her if culture suggests otherwise. Currently no signs of additional systemic infection, kidney stones or sepsis. She notes that she did have a COVID exposure on [place]. Reassurance is given that her COVID test was negative today. Is safe for discharge Discharge Plan Departure Patient Disposition: Home Clinical Impression: Urinary tract infection Instructions: DI for Urinary Tract Infection (UTI) Activity Restrictions/Additional Instructions: Thank you for coming in today It does look like you have a bladder infection. While we were doing a thorough evaluation to make sure that you did not have infection spreading through your blood stream, you were given IV antibiotics. This single dose of IV antibiotics should be adequate to completely treat the mild bladder infection because you d id come in so early. Your COVID test was negative today If you feel that you are getting worse, please return to the ER Prescriptions: No Action albuterol sulfate 90 mcg/actuation HFA aerosol inhaler 2 puff INHALATION Q4-6H PRN (Reason: bronchospasm) Qty: 8.5 0RF [OMEGA 3] 1,000 mg PO Q DAY Qty: 0 0RF cholecalciferol (vitamin D3) [Vitamin D3] 1,000 unit Tablet 1,000 unit PO DAILY 0RF latanoprost 0.005 % Drops 1 drp DAILY 0RF cyanocobalamin (vitamin B-12) [Vitamin B-12] 1,000 mcg Tablet 1,000 mcg PO DAILY 0RF red yeast rice 600 mg Capsule 600 mg PO DAILY 0RF Referrals: Venice Johnston ARNP [Primary Care Provider] -
[2021-04-22 13:17] LABS: Reflexed Lactate in 2 Hours Y
[2021-04-22 14:21] LABS: Lactate 2HR (Lactic Acid Rflx) 1.8 mmol/L (0.7-2.1)
[2021-04-22 14:44] VITALS: BP 166/77; PULSE 78; RESP 20; TEMP 36.6; O2SAT 98
== END 2021-04-22 14:45 | disposition home or self-care (01) ==
PROVIDERS: Emergency Provider Emergency Medicine; PCP Internal Medicine
DX: N39.0 Urinary tract infection, site not specified (principal); Z20.822 Contact with and (suspected) exposure to COVID-19
CPT/HCPCS: 36415; 80053; 81001; 83605; 85025; 87040; 87077; 87086; 87186; 87635; 96361; 96365; 99284; C9803; J0696

== ENCOUNTER → 2021-12-01 12:19 | Outpatient (CLI) | payer MEDICARE, SELFPAY ==
--- NOTE | 2021-12-01 | DI.CT.S_ITS ---
PROCEDURE: CT ABDOMEN PELVIS W CON INDICATIONS: Right upper quadrant pain TECHNIQUE: After the administration of oral and intravenous contrast, axial sections were acquired from the lung bases to the pubic symphysis. Coronal and sagittal reformats were performed. For radiation dose reduction, the following was used: automated exposure control, adjustment of mA and/or kV according to patient size. COMPARISON:None. FINDINGS: Image quality: Excellent. Lung bases: Unremarkable. Heart: No significant findings. ABDOMEN: Liver: Unremarkable. Gallbladder: Surgically absent. Biliary ducts: Unremarkable. Pancreas: There is a 1.2 x 1.3 x 1.6 cm low-density circumscribed cystic lesion within the body of the pancreas (series 2/image 20). The pancreas demonstrates otherwise normal size and enhancement. Spleen: Unremarkable. Adrenal Glands: Unremarkable. Kidneys and Ureters: Unremarkable. There is a low-density cystic lesion in the upper pole of the right kidney. Stomach and Bowel: There is a fat containing para soft [place]. Stomach, small bowel loops, and colon are unremarkable. There are scattered sigmoid diverticula. No evidence for diverticulitis. The appendix is thin walled and gas filled. Peritoneum: No abnormal intraperitoneal fluid. No free air. Ventral Wall: No hernia. Abdominal Nodes: No retroperitoneal or mesenteric adenopathy by size criteria. Vessels: Aorta and inferior vena cava are normal in size. There are scattered atheromatous calcifications throughout the aorta and iliac arteries bilaterally. PELVIS: Pelvic Organs: Unremarkable. Bladder: Unremarkable. Pelvic Nodes: No enlarged lymph nodes. Miscellaneous: No inguinal hernias are seen. Bones: Unremarkable. IMPRESSION: 1. No acute intra-abdominal findings. Normal appendix. Diverticulosis. No acute diverticulitis. 2. Incidentally noted cystic mass within the body of the pancreas. If further characterization is warranted, pancreatic mass protocol CT could be used. 3. Fat containing para soft the BRADY were knee a. Dictated by: Pretty Salinas M.D. on 12/01/2021 at 16:58 Approved by: Pretty Salinas M.D. on 12/01/2021 at 17:03
== END ==
PROVIDERS: PCP Internal Medicine; Referring Provider Internal Medicine; Visit Provider Internal Medicine
DX: K86.9 Disease of pancreas, unspecified (principal); N28.89 Other specified disorders of kidney and ureter; K57.30 Diverticulosis of large intestine without perforation or abscess without bleeding; K44.9 Diaphragmatic hernia without obstruction or gangrene; R10.11 Right upper quadrant pain
CPT/HCPCS: 74177; Q9967

== ENCOUNTER → 2022-02-10 11:02 | Outpatient (CLI) | payer MEDICARE, SELFPAY ==
--- NOTE | 2022-02-10 11:04 | DI.MG.S_ITS ---
BILATERAL DIGITAL SCREENING MAMMOGRAM 3D/2D WITH CAD POST LUMPECTOMY: 02/10/2022 CLINICAL: Routine screening. Personal history of right breast cancer. Comparison is made to exams dated: 01/10/2021 mammogram, 12/24/2019 mammogram, and 11/27/2018 mammogram - [facility]. There are scattered areas of fibroglandular density in both breasts (category b / 25%-50% glandular tissue). Current study was also evaluated with a Computer Aided Detection (CAD) system. There are benign calcifications in both breasts. There also are benign post operative findings in the right breast. No significant masses, calcifications, or other findings are seen in either breast. There has been no significant interval change. IMPRESSION: BENIGN There is no mammographic evidence of malignancy. A 1 year screening mammogram is recommended. This exam was interpreted at Station ID: [id number]. NOTE: For mammograms, a report in lay terms will be sent to the patient. Approximately 15% of breast malignancies will not be visualized mammographically. In the management of a palpable breast mass, a negative mammogram must not discourage biopsy of a clinically suspicious lesion. Electronically Signed By: Rashad shearer/chel:02/10/2022 11:36:19 copy to: Carline Neal letter sent: Normal Exam ACR BI-RADS Category 2: Benign Finding(s) 3342F
== END ==
PROVIDERS: PCP Internal Medicine; Referring Provider Internal Medicine; Visit Provider Internal Medicine
DX: Z12.31 Encounter for screening mammogram for malignant neoplasm of breast (principal); Z85.3 Personal history of malignant neoplasm of breast
CPT/HCPCS: 77063; 77067

== ENCOUNTER 2022-10-24 09:35 | Emergency (ER) | payer MEDICARE, SELFPAY ==
[2022-10-24 09:52] VITALS: BP 156/74; PULSE 84; RESP 18; TEMP 36.7; O2SAT 99; BMI 32.2
--- NOTE | 2022-10-24 10:02 | DI.CT.S_ITS ---
PROCEDURE: CT HEAD/BRAIN WO CON INDICATIONS: severe headache TECHNIQUE: Noncontrast 4.5 mm thick angled axial sections acquired from the foramen magnum to the vertex, with coronal and sagittal reformats. For radiation dose reduction, the following was used: automated exposure control, adjustment of mA and/or kV according to patient size. COMPARISON: None. FINDINGS: Image quality: Excellent. CSF spaces: Basal cisterns are patent. No extra-axial fluid collections. The ventricles are symmetric in size and shape. Brain: No intracranial bleeds or masses. There is cerebral volume loss for age, with resultant ventricular and sulcal prominence. There are periventricular and deep white matter chronic small vessel ischemic changes. There is intracranial internal carotid artery atherosclerosis. Skull and face: Calvarium and visualized facial bones appear intact, without suspicious lesions. Sinuses: Visualized sinuses and mastoids are clear. IMPRESSION: 1. No acute intracranial abnormalities. 2. Cerebral volume loss and chronic microvascular ischemic changes. Dictated by: Chiquita Cooper M.D. on 10/24/2022 at 10:20 Approved by: Chiquita Cooper M.D. on 10/24/2022 at 10:22
--- NOTE | 2022-10-24 10:57 | ED_ITS ---
HPI - Dental/Oral General Chief complaint: Dental/Oral Stated complaint: pain on RT side of head/Ear/T-3 Time Seen by Provider: 10/24/22 09:47 Source: patient Mode of arrival: Ambulatory History of Present Illness HPI Narrative: 82-year-old female nonsmoker with history of bronchospasm and reactive airway disease presents with a chief complaint episodes of right-sided headache that are relatively sharp and stabbing that seemed to come on gradually over the past 3 days. She denies any trauma or injury. She has no fever or chills. She does not take blood thinners. She is not dizzy nor weak or lightheaded. She states the pain seems to come with a mind of its own in lasts a few minutes at a time. She states it seems to get better when she swallows. Additionally she has been trying to reach her dentist because 1 of the left lower molars has some tender swollen area of gingiva immediately adjacent. She denies any purulent drainage. She has no facial swelling, difficulty swallowing or trouble breathing Related Data Home Medications Medication Instructions Recorded Confirmed [OMEGA 3] 1,000 mg PO Q DAY ##0 04/22/10 10/05/20 cholecalciferol (vitamin D3) 25 1,000 unit PO DAILY 10/17/17 10/05/20 mcg (1,000 unit) tablet (Vitamin D3) cyanocobalamin (vitamin B-12) 1,000 mcg PO DAILY 10/17/17 10/05/20 1,000 mcg tablet (Vitamin B-12) latanoprost 0.005 % eye drops 1 drp DAILY 10/17/17 10/05/20 red yeast rice 600 mg capsule 600 mg PO DAILY 10/17/17 10/05/20 Previous Rx's Medication Instructions Recorded albuterol sulfate 90 mcg/actuation 2 puff inhalation Q4-6H PRN 07/06/19 aerosol inhaler bronchospasm #8.5 grams amoxicillin 500 mg tablet 500 mg PO Q8H #30 tabs 10/24/22 Allergies Allergy/AdvReac Type Severity Reaction Status Date / Time oxycodone AdvReac Intermediate VOMITING Verified 04/22/21 10:34 Review of Systems Review of Systems Narrative: GENERAL: Denies chills, fatigue, malaise, fever, sweats. HEENT: See HPI RESPIRATORY: Denies dyspnea, cough, wheezing, hemoptysis, sputum. CARDIOVASCULAR: Denies chest pain, palpitations, orthopnea, edema, GASTROINTESTINAL: Denies nausea, vomiting, abdominal pain, diarrhea, constipation, melena. : Denies dysuria, frequency, incontinence, hematuria, urinary retention. MUSCULOSKELETAL: denies weakness, joint pain, or bony pain SKIN: Denies rash, skin lesions, or other NEUROLOGIC: Denies weakness, headache, numbness, change in speech, confusion, seizures, incoordination. PSYCHIATRIC: No concerning psychosocial issues. 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 Well-developed patient, in mild distress. GCS 15 HEAD: Atraumatic. Normocephalic. No pain or reproducibility overlying right temporal EYES: Pupils equal round and reactive. Extraocular motions intact. No scleral icterus. No injection or drainage. ENT: No facial swelling, redness or tenderness. Small area of minimal fluctuance adjacent to left lower premolar consistent with possible infectious process Nose without bleeding, purulent drainage. Throat without erythema, tonsi llar hypertrophy or exudate. Airway patent. NECK: Trachea midline. Non tender, no meningeal signs CARDIOVASCULAR: Regular rate and rhythm without murmurs, gallops, or rubs. RESPIRATORY: Clear to auscultation. Breath sounds equal bilaterally. No wheezes, rales, or rhonchi. GASTROINTESTINAL: Abdomen soft, non-tender, nondistended. EXTREMITIES: No edema or joint tenderness. BACK: Nontender without deformity or crepitance. No flank tenderness. NEURO: AOx3. SKIN: No rash or erythema of visible areas Initial Vital Signs Initial Vital Signs: Vital Signs Temperature 98.0 F 10/24/22 09:52 Pulse Rate 84 10/24/22 09:52 Respiratory Rate 18 10/24/22 09:52 Blood Pressure 156/74 H 10/24/22 09:52 Pulse Oximetry 99 07/05/23 09:52 Oxygen Delivery Method Room Air 10/24/22 09:52 Course Orders Ordered: ED Orders 10/24/22 09:58 Consult to CUSTOMER LIAISON - Endoscopy Technician Stat 10/24/22 10:02 CT head/brain wo con Stat Vital Signs Vital signs: Vital Signs - 8 hr 10/24/22 09:52 Temperature 98.0 F Pulse Rate 84 Respiratory Rate 18 Blood Pressure 156/74 H Pulse Oximetry 99 Oxygen Delivery Method Room Air MDM - Dental/Oral MDM Narrative Medical decision making narrative: [82] year old patient presents with right-sided headache and left lower dental infection Multiple etiologies for patient's symptoms considered including, but not limited to: [Dental sari versus abscess, see below for headache considerations] Headache considerations include, but not limited to: Subarachnoid hemorrhage, but unlikely as patient denies sudden onset of pain, not worst of life, or neck pain Meningitis considered, but thought unlikely given lack of Brudzinski's, Kernig's sign, altered mental status or fever Giant cell arteritis considered, but thought unlikely given lack of unilateral findings, pain in taoism, vision change HTN Emergency considered, but thought unlikely given normal vitals Other serious diagnoses considered unlikely given lack of red flag findings such as sudden onset, increasing frequency, immunocompromise, systemic signs (fever, chills, stiff neck, or rash), focal neurologic findings, trauma, blood thinners, etc. Prior Charts reviewed in our EMR Primary Historian: patient Imaging reviewed: Consultations: Patient's symptoms improved over duration of stay with above-stated therapies. Findings and discharge diagnosis discussed with patient/family followed by verbalization of understanding Return precautions discussed with patient/family whom verbalize understanding of diagnosis and plan Discharge Plan Departure Patient Disposition: Home Clinical Impression: Dental infection, Headache Instructions: DI for Dental Pain Activity Restrictions/Additional Instructions: *You have been diagnosed with [dental infection and headache. As we discussed the CT scan of your brain is very reassuring and there is no evidence of a tumor, bleeding or other concerning cause of headache] *What to do: *Please continue to take your regular medications as directed. [x ] New medication prescriptions sent to your pharmacy: [ [facility]] [ ] New medication written as a paper prescription [ ] No new medications given *Please follow up with your primary care provider in 2-3 days, call for an appointment. Let them know you were seen in the Emergency Department and that we ask that you be seen in follow up. We will electronically transmit a record of today's note if your PCP is in our system *If you do not have a primary care provider please contact the [facility] Resource line at [phone]. They will ask some questions about your medical history and help get you set up with a doctor in the community. *Return to Emergency Department if you should have any new, worsening or concerning symptoms, such as [fever greater than 101 F, shaking chills, worsening pain, persistent vomiting or other bothersome symptoms] Prescriptions: New amoxicillin 500 mg tablet 500 mg PO Q8H Qty: 30 0RF No Action albuterol sulfate 90 mcg/actuation HFA aerosol inhaler 2 puff INHALATION Q4-6H PRN (Reason: bronchospasm) Qty: 8.5 0RF [OMEGA 3] 1,000 mg PO Q DAY Qty: 0 cholecalciferol (vitamin D3) [Vitamin D3] 1,000 unit Tablet 1,000 unit PO DAILY latanoprost 0.005 % Drops 1 drp DAILY cyanocobalamin (vitamin B-12) [Vitamin B-12] 1,000 mcg Tablet 1,000 mcg PO DAILY red yeast rice 600 mg Capsule 600 mg PO DAILY Referrals: Best Julian DMD [Physician] - Venice Johnston ARNP [Primary Care Provider] - Stand Alone Forms: Patient Portal/API
[2022-10-24 11:23] VITALS: BP 144/78; PULSE 70; RESP 15; O2SAT 99
== END 2022-10-24 11:24 | disposition home or self-care (01) ==
PROVIDERS: Emergency Provider Emergency Medicine; PCP Internal Medicine
DX: K04.7 Periapical abscess without sinus (principal); R51.9 Headache, unspecified
CPT/HCPCS: 70450; 99281; 99284

== ENCOUNTER → 2023-03-27 10:54 | Outpatient (CLI) | payer MEDICARE, SELFPAY ==
--- NOTE | 2023-03-27 | DI.MG.S_ITS ---
BILATERAL DIGITAL SCREENING MAMMOGRAM 3D/2D WITH CAD POST LUMPECTOMY: 03/27/2023 CLINICAL: Routine screening. Personal history of right breast cancer. Comparison is made to exams dated: 02/10/2022 mammogram, 01/10/2021 mammogram, and 12/24/2019 mammogram - [facility]. There are scattered areas of fibroglandular density in both breasts (category b / 25%-50% glandular tissue). Current study was also evaluated with a Computer Aided Detection (CAD) system. There are benign calcifications in both breasts. There also are benign post operative findings in the right breast. No significant masses, calcifications, or other findings are seen in either breast. There has been no significant interval change. IMPRESSION: BENIGN There is no mammographic evidence of malignancy. A 1 year screening mammogram is recommended. This exam was interpreted at Station ID: [id number]. NOTE: For mammograms, a report in lay terms will be sent to the patient. Approximately 15% of breast malignancies will not be visualized mammographically. In the management of a palpable breast mass, a negative mammogram must not discourage biopsy of a clinically suspicious lesion. Electronically Signed By: Renetta acuña/chel:03/27/2023 13:40:03 copy to: Carline Neal letter sent: Normal Exam ACR BI-RADS Category 2: Benign Finding(s) [id number]
== END ==
PROVIDERS: PCP Internal Medicine; Referring Provider Internal Medicine; Visit Provider Internal Medicine
DX: Z12.31 Encounter for screening mammogram for malignant neoplasm of breast (principal); Z85.3 Personal history of malignant neoplasm of breast
CPT/HCPCS: 77063; 77067

== ENCOUNTER → 2024-04-01 09:53 | Outpatient (CLI) | payer MEDICARE, SELFPAY ==
--- NOTE | 2024-04-01 09:55 | DI.MG.S_ITS ---
BILATERAL DIGITAL SCREENING MAMMOGRAM 3D/2D WITH CAD POST LUMPECTOMY: 04/01/2024 CLINICAL: Routine screening. Personal history of Right breast cancer. Comparison is made to exams dated: 03/27/2023 mammogram, 02/10/2022 mammogram, and 01/10/2021 mammogram - [facility]. There are scattered areas of fibroglandular density (category b / 25%-50% glandular tissue). Current study was also evaluated with a Computer Aided Detection (CAD) system. There are benign vascular calcifications in both breasts. There also are benign post operative findings in the right breast. No significant masses, calcifications, or other findings are seen in either breast. There has been no significant interval change. IMPRESSION: BENIGN There is no mammographic evidence of malignancy. A 1 year screening mammogram is recommended. This exam was interpreted at Station ID: [id number]. NOTE: For mammograms, a report in lay terms will be sent to the patient. Approximately 15% of breast malignancies will not be visualized mammographically. In the management of a palpable breast mass, a negative mammogram must not discourage biopsy of a clinically suspicious lesion. Electronically Signed By: Pretty milan/chel:04/01/2024 11:02:56 copy to: Carline Neal letter sent: Normal Exam ACR BI-RADS Category 2: Benign
== END ==
PROVIDERS: PCP Internal Medicine; Referring Provider Internal Medicine; Visit Provider Internal Medicine
DX: Z12.31 Encounter for screening mammogram for malignant neoplasm of breast (principal); Z85.3 Personal history of malignant neoplasm of breast
CPT/HCPCS: 77063; 77067

== ENCOUNTER 2025-03-28 07:20 | Emergency (ER) | payer MEDICARE, SELFPAY ==
[2025-03-28] VITALS (12 sets, daily range): BP systolic 116–144; BP diastolic 55–79; PULSE 69–100; RESP 16–29; TEMP 36.5; O2SAT 91–96; BMI 32.8
--- NOTE | 2025-03-28 07:30 | DI.RAD.S_ITS ---
PROCEDURE: XR CHEST 1V INDICATIONS: Shortness of breath TECHNIQUE: One view of the chest was acquired. COMPARISON: [facility], , CHEST 2 VIEW, 09/12/2015, 11:52. FINDINGS: Surgical changes and devices: None. Lungs and pleura: Lungs are clear. No pleural effusions or pneumothorax. Mediastinum: Mediastinal contours appear normal. Heart size is normal. Bones and chest wall: No suspicious bony lesions. Overlying soft tissues appear unremarkable. IMPRESSION: No acute cardiopulmonary abnormality is seen. Dictated by: Clovis Rios M.D. on 03/28/2025 at 7:54 Approved by: Clovis Rios M.D. on 03/28/2025 at 7:55
--- NOTE | 2025-03-28 07:39 | EKG_ITS ---
[place] [address] [place] [id number] Test Date: 2025-03-28 Pat Name: Gary Mcdaniel Department: [facility] Room: Gender: Female Tip Printer: : 1940 Requested By: Order Number: [id number] Reading MD: Naseem De La Garza MD Measurements Intervals [place] Rate: 90 P: 38 OK: 168 QRS: -9 QRSD: 74 T: 33 QT: 378 QTc: 462 Interpretive Statements Normal sinus rhythm Inferior infarct , age undetermined Cannot rule out Anterior infarct , age undetermined Electronically Signed On 03-28-2025 8:25:28 PST by Naseem De La Garza MD
--- NOTE | 2025-03-28 07:40 | ED.SOB ---
HPI - SOB/Dyspnea General Chief Complaint: Shortness of Breath/Dyspnea Stated Complaint: SOB, pressure in the head this am Time Seen by Provider: 03/28/25 07:40 Mode of arrival: Ambulatory History of Present Illness HPI Narrative: This is an 84 year white female with a history of diabetes and breast cancer who presents to the emergency room with increasing dyspnea on exertion for the past several months for the past several days she has noticed some rest dyspnea. Patient's son said earlier this morning where she was complaining of some heaviness on her chest but she denies that now. Patient denied any recent viral illness no fevers or chills no cough or hemoptysis no orthopnea or pedal edema no abdominal pain nausea vomiting or diarrhea. Related Data Home Medications ?Medication ?Instructions ?Recorded ?Confirmed [OMEGA 3] 1,000 mg PO Q DAY ##0 04/22/10 10/05/20 cholecalciferol (vitamin D3) 25 1,000 unit PO DAILY 10/17/17 10/05/20 mcg (1,000 unit) tablet (Vitamin D3) cyanocobalamin (vitamin B-12) 1,000 mcg PO DAILY 10/17/17 10/05/20 1,000 mcg tablet (Vitamin B-12) latanoprost 0.005 % eye drops 1 drp DAILY 10/17/17 10/05/20 red yeast rice 600 mg capsule 600 mg PO DAILY 10/17/17 10/05/20 Previous Rx's ?Medication ?Instructions ?Recorded albuterol sulfate 90 mcg/actuation 2 puff inhalation Q4-6H PRN 07/06/19 aerosol inhaler bronchospasm #8.5 grams amoxicillin 500 mg tablet 500 mg PO Q8H #30 tabs 10/24/22 Allergies Allergy/AdvReac Type Severity Reaction Status Date / Time oxycodone AdvReac Intermediate VOMITING Verified 04/22/21 10:34 Review of Systems Review of Systems Narrative: GENERAL: Denies chills, fatigue, malaise, fever, sweats. HEENT: Denies sinus pain, ear pain, sore throat, difficulty swallowing, dizziness. RESPIRATORY: See HPI CARDIOVASCULAR: Denies chest pain, palpitations, orthopnea, edema, GASTROINTESTINAL: Denies nausea, vomiting, abdominal pain, diarrhea, constipation, melena. : Denies dysuria, frequency, incontinence, hematuria, urinary retention. MUSCULOSKELETAL: denies weakness, joint pain, or bony pain SKIN: Denies rash, skin lesions, or other NEUROLOGIC: Denies weakness, headache, numbness, change in speech, confusion, seizures, incoordination. PSYCHIATRIC: No concerning psychosocial issues. 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 Well-developed patient, in mild distress. HEAD: Atraumatic. Normocephalic. EYES: Pupils equal round and reactive. Extraocular motions intact. No scleral icterus. No injection or drainage. ENT: Nose without bleeding, purulent drainage. Throat without erythema, tonsillar hypertrophy or exudate. Airway patent. NECK: Trachea midline. Non tender CARDIOVASCULAR: Regular rate and rhythm without murmurs, gallops, or rubs. RESPIRATORY: Clear to auscultation. Breath sounds equal bilaterally. No wheezes, rales, or rhonchi. GASTROINTESTINAL: Abdomen soft, non-tender, nondistended. EXTREMITIES: No edema or joint tenderness. BACK: Nontender without deformity or crepitance. No flank tenderness. NEURO: AOx3. SKIN: No rash or erythema of visible areas Initial Vital Signs Initial Vital Signs: Vital Signs Pulse Oximetry 96 03/28/25 07:29 Course Orders Ordered: ED Orders 03/28/25 07:30 XR chest 1V Stat EKG-12 Lead Stat 03/28/25 07:38 Comprehensive Metabolic Panel Stat Magnesium Stat NT-proBNP (BNP-Adult 18+) Stat Troponin I Stat 03/28/25 07:50 Complete Blood Count AUTO DIFF Stat Covid-19 + FLU A/B + RSV - PCR Stat D Dimer Stat Lactate (Lactic Acid) Stat PTT Partial Thromboplastin [place] Stat Prothrombin Time INR Stat 03/28/25 10:20 Trop I [Troponin I] Stat Vital Signs Vital signs: Vital Signs - 8 hr 03/28/25 07:29 03/28/25 07:31 03/28/25 07:33 Temperature 97.7 F Pulse Rate 100 H Respiratory Rate 20 Blood Pressure 127/76 144/71 H Pulse Oximetry 96 95 Oxygen Delivery Method Room Air 03/28/25 07:43 03/28/25 08:00 03/28/25 08:01 Temperature Pulse Rate 89 79 78 Respiratory Rate 20 19 Blood Pressure Pulse Oximetry 94 96 94 Oxygen Delivery Method 03/28/25 08:01 03/28/25 08:30 03/28/25 08:30 Temperature Pulse Rate 75 Respiratory Rate 16 Blood Pressure 118/55 L 119/65 Pulse Oximetry 91 Oxygen Delivery Method 03/28/25 09:00 03/28/25 09:00 03/28/25 09:30 Temperature Pulse Rate 74 69 Respiratory Rate 16 17 Blood Pressure 116/64 Pulse Oximetry 92 93 Oxygen Delivery Method 03/28/25 09:31 03/28/25 09:31 03/28/25 10:00 Temperature Pulse Rate 72 85 Respiratory Rate 18 29 H Blood Pressure 124/61 Pulse Oximetry 93 95 Oxygen Delivery Method 03/28/25 10:00 Temperature Pulse Rate Respiratory Rate Blood Pressure 137/79 Pulse Oximetry Oxygen Delivery Method MDM - SOB/Dyspnea Lab Data 03/28/25 07:50 03/28/25 07:38 Labs: Lab Results 03/28/25 03/28/25 03/28/25 Range/Units 07:38 07:50 10:20 WBC 7.6 (4.5-11.0) X10^3/uL RBC 4.29 (4.0-5.2) X10^6/uL Hgb 13.9 (12.0-16.0) g/dL Hct 40.6 (36-46) % MCV 94.7 (80-100) fL MCH 32.4 (26-34) PG MCHC 34.2 (30-36) % RDW 12.9 (11.6-14.8) % Plt Count 359 (150-400) X10^3/uL Neut % (Auto) 56.1 (50-75) % Lymph % (Auto) 32.0 (25-40) % [place] % (Auto) 8.1 (3-14) % Eos % (Auto) 2.9 (2-4) % Baso % (Auto) 0.9 (0-2) % Neut # (Auto) 4300 (5407-2209) /uL Lymph # (Auto) 2400 (8400-5335) /uL [place] # (Auto) 600 (0-900) /uL Eos # (Auto) 200 (0-450) /uL Baso # (Auto) 100 (0-100) /uL PT 11.4 (9.4-12.5) SECONDS INR 1.0 (0.9-1.3) APTT 27 (25.1-36.5) SECONDS D-Dimer 457 (<500) ng/ml Sodium 139 (137-145) mmol/L Potassium 4.1 (3.4-5.1) mmol/L Chloride 106 (98-107) mmol/L Carbon Dioxide 22 (22-32) mmol/L BUN 17 (7-17) mg/dL Creatinine 1.18 H (0.52-1.04) mg/dL Estimated GFR 46 L (>60) mL/min BUN/Creatinine Ratio 14.4 (6-22) Glucose 152 H (70-99) mg/dL Lactate 1.9 (0.7-2.1) mmol/L Calcium 9.2 (8.4-10.2) mg/dL Magnesium 1.8 (1.6-2.3) mg/dL Total Bilirubin 0.5 (0.2-1.3) mg/dL AST 27 (14-36) IU/L ALT 25 (<35) IU/L Alkaline Phosphatase 80 (38-126) U/L Troponin I < 0.012 < 0.012 (0.01-0.034) ng/mL NT-Pro-B Natriuret Pep 118 (<450) pg/mL Total Protein 7.5 (6.3-8.2) g/dL Albumin 4.3 (3.5-5.0) g/dL Globulin 3.2 (1.7-4.1) g/dL Albumin/Globulin Ratio 1.3 (1.0-2.8) SARS-CoV-2 (PCR) Negative (Negative) Influenza A (RT-PCR) Flu a negative (NEGATIVE) Influenza B (RT-PCR) Flu b negative (NEGATIVE) RSV (PCR) Negative (Negative) [facility] Narrative Medical decision making narrative: Patient had 12 lead EKG which shows sinus rhythm at 90 beats per minute left axis deviation no blocks nonspecific STT wave changes patient had chest x-ray read by the radiologist negative patient was COVID negative influenza negative RSV negative patient's CBC with normal limits a chemistry remarkable for glucose of 152 lactic acid was negative D-dimer is negative BNP was negative troponin negative x2. The patient came in with progressive increase in dyspnea on exertion for several months. She also mentioned occurs more at nighttime. I am concerned that the patient may have some pulmonary hypertension. I feel she should be referred to cardiology and Pulmonary for further outpatient workup. I did discuss the results with the patient and her daughter and they are agreeable. Differential diagnosis pulmonary embolism CHF Discharge Plan Departure Patient Disposition: Home Clinical Impression: Exertional dyspnea, Pulmonary hypertension Instructions: DI for Shortness of Breath, DI for Pulmonary Arterial Hypertension-Adult Prescriptions: No Action albuterol sulfate 90 mcg/actuation HFA aerosol inhaler 2 puff INHALATION Q4-6H PRN (Reason: bronchospasm) Qty: 8.5 0RF [OMEGA 3] 1,000 mg PO Q DAY Qty: 0 cholecalciferol (vitamin D3) [Vitamin D3] 1,000 unit Tablet 1,000 unit PO DAILY latanoprost 0.005 % Drops 1 drp DAILY cyanocobalamin (vitamin B-12) [Vitamin B-12] 1,000 mcg Tablet 1,000 mcg PO DAILY red yeast rice 600 mg Capsule 600 mg PO DAILY amoxicillin 500 mg tablet 500 mg PO Q8H Qty: 30 0RF Referrals: Venice Johnston ARNP [Primary Care Provider, Family Practice] - As soon as possible Stand Alone Forms: Patient Portal/API
[2025-03-28 08:11] LABS: Add Manual Diff / Slide Review NO; Hematocrit 40.6 % (36-46); Hemoglobin 13.9 g/dL (12.0-16.0); Lymphocytes Absolute Auto 2400 /uL (1100-4500); Mean Corpuscular HGB Conc 34.2 % (30-36); Mean Corpuscular Hemoglobin 32.4 PG (26-34); Mean Corpuscular Volume 94.7 fL (80-100); Platelet Count 359 X10^3/uL (150-400)
[2025-03-28 08:17] LABS: INR 1.0 (0.9-1.3); Prothrombin Time 11.4 SECONDS (9.4-12.5)
[2025-03-28 08:19] LABS: PTT Partial Thromboplastin Tim 27 SECONDS (25.1-36.5)
[2025-03-28 08:22] LABS: Lactate (Lactic Acid) 1.9 mmol/L (0.7-2.1)
[2025-03-28 08:22] LABS: Alanine Aminotransferase 25 IU/L (<35); Albumin 4.3 g/dL (3.5-5.0); Albumin Globulin Ratio 1.3 (1.0-2.8); Alkaline Phosphatase 80 U/L (38-126); Blood Urea Nitrogen 17 mg/dL (7-17); Calcium 9.2 mg/dL (8.4-10.2); Carbon Dioxide 22 mmol/L (22-32); Chloride 106 mmol/L (98-107); Estimated Glomerular Filt Rate 46 mL/min (>60); Globulin 3.2 g/dL (1.7-4.1); Glucose 152 mg/dL (70-99); HEMOLYSIS < 15 (0-50); Magnesium 1.8 mg/dL (1.6-2.3); Potassium 4.1 mmol/L (3.4-5.1); Sodium 139 mmol/L (137-145); Total Protein 7.5 g/dL (6.3-8.2)
[2025-03-28 08:33] LABS: NT-proBNP (BNP-Adult 18+) 118 pg/mL (<450); Troponin I < 0.012 ng/mL (0.01-0.034)
[2025-03-28 09:07] LABS: Influenza A - CEPHEID Flu A NEGATIVE (NEGATIVE); Influenza B - CEPHEID Flu B NEGATIVE (NEGATIVE)
[2025-03-28 09:09] LABS: COVID-19 CEPHEID 4-PLEX PCR Negative (Negative)
[2025-03-28 10:49] LABS: Troponin I < 0.012 ng/mL (0.01-0.034)
== END 2025-03-28 11:25 | disposition home or self-care (01) ==
PROVIDERS: Emergency Provider Emergency Medicine; PCP Internal Medicine
DX: I27.20 Pulmonary hypertension, unspecified (principal); R06.09 Other forms of dyspnea; E11.9 Type 2 diabetes mellitus without complications
CPT/HCPCS: 36415; 71045; 80053; 83605; 83735; 83880; 84484; 85025; 85379; 85610; 85730; 87637; 93005; 93010; 99284